=== PATIENT | female | born 1935 | race Caucasian/White ===

== ENCOUNTER 2019-02-06 13:59 | Emergency (ER) | payer MEDICARE ==
[2019-02-06 15:33] VITALS: RESP 18
[2019-02-06] MEDS ORDERED: CIPROFLOXACIN-DEXAMETH 0.3-0.1% DROPS 7.5 ML BTL BOTH EARS STA (17:16)
--- NOTE | 2019-02-06 18:00 | ED ---
General Adult HPI - General Chief complaint: ENT Stated complaint: poss ear infection, both ears, middle finger rt griffin Time Seen by Provider: 02/06/19 16:20 Source: patient, RN notes reviewed, old records reviewed Mode of arrival: ambulatory Limitations: no limitations - History of Present Illness Initial comments: 83-year-old female patient past medical history of diabetes presents to ED with chief complaint of bilateral external auditory canal pain and swelling. Patient reports it is worse on the left external auditory canal where she has discharge. Patient denies any other complaints at this time. Systemic: Pt denies fatigue, fever/chills, rash. Pt denies weakness, night sweats, weight loss. Neuro: Pt denies headache, visual disturbances, syncope or pre-syncope. HEENT: Pt denies ocular discharge or irritation, otalgia, rhinorrhea, pharyngitis or notable lymphadenopathy. Cardiopulmonary: Pt denies chest pain, SOB, heart palpitations, dyspnea on exertion. Abdominal/GI: Pt denies abdominal pain, n/v/d. : Pt denies dysuria, burning w/ urination, frequency/urgency. Denies new onset urinary or bowel incontinence. MSK: Pt denies myalgia, loss of strength or function in extremities. Neuro: Pt denies new onset weakness, paresthesias. - Related Data Previous Rx's Medication Instructions Recorded Amoxicillin/Potassium Clav 1 each PO Q12HR #20 tab 02/06/19 [Augmentin 875-125 Tablet] Ciprofloxacin-Dexameth [Ciprodex 4 drops BOTH EARS BID 7 Days #1 02/06/19 Otic Susp] bottle Allergies Allergy/AdvReac Type Severity Reaction Status Date / Time No Known Allergies Allergy Verified 02/06/19 15:29 Review of Systems ROS Statement: Those systems with pertinent positive or pertinent negative responses have been documented in the HPI. ROS Other: All systems not noted in ROS Statement are negative. Past Medical History Past Medical History: Diabetes Mellitus, Hypertension, Renal Disease Additional Past Medical History / Comment(s): DME History of Any Multi-Drug Resistant Organisms: None Reported Past Surgical History: Appendectomy Past Psychological History: No Psychological Hx Reported Smoking Status: Former smoker Past Alcohol Use History: None Reported Past Drug Use History: None Reported General Exam - General Exam Comments Initial Comments: Constitutional: NAD, AOX3, Pt has pleasant affect. HEENT: NC/AT, trachea midline, neck supple, no lymphadenopathy. Posterior pharynx non erythematous, without exudates. External ears appear normal, without discharge. Mucous membranes moist. Eyes PERRLA, EOM intact. There is no scleral icterus. No pallor noted. Left external auditory canal erythematous, edematous, purulent drainage noted, culture obtained, tympanic membrane not visualized. Right external auditory canal mildly erythematous, drainage noted. Right TM pale awan. Cardiopulmonary: RRR, no murmurs, rubs or gallops, no JVD noted. Lungs CTAB in anterior and posterior degroot. No peripheral edema. Abdominal exam: Abdomen soft and non-distended. Abdomen non-tender to palpation in all 4 quadrants. Bowel sounds active in LLQ. No hepatosplenomegaly. No ecchymosis. No mastoid tenderness or erythema. Neuro: CN II-XII grossly intact. No nuchal rigidity. No raccon eyes, no lerma sign, no hemotympanum. No cervical spinal tenderness. MSK: No posterior calf tenderness bilaterally, homans sign negative bilaterally. Posterior tibialis and radial pulse +2 bilaterally. Sensation intact in upper and lower extremities. Full active ROM in upper and lower extremities, 5/5 stregnth. Limitations: no limitations Course Vital Signs 02/06/19 02/06/19 15:29 18:05 Temperature 99 F 97.2 F L Pulse Rate 73 78 Respiratory 18 18 Rate Blood Pressure 208/96 204/100 O2 Sat by Pulse 98 98 Oximetry Medical Decision Making - Medical Decision Making 83-year-old female patient past medical history of diabetes presents to ED with chief complaint of bilateral external auditory canal pain and swelling. Patient reports it is worse on the left external auditory canal where she has discharge. Patient denies any other complaints at this time. Pt VS displayed hypertension. Patient does have history of hypertension, denies any headache, changes in vision, paresthesias. Patient offered from pharmacologic intervention blood pressure, patient declined states that she is asymptomatic will monitor symptoms at home and will check her blood pressure at home. Physical exam displayed: Left external auditory canal erythematous, edematous, purulent drainage noted, culture obtained, tympanic membrane not visualized. Right external auditory canal mildly erythematous, drainage noted. Right TM pale awan. Patient started on Ciprodex eardrops and wick was placed in left auditory canal. Patient also be prescribed oral Augmentin. Patient will be discharged, will have close outpatient follow-up with ENT. Return precautions discussed. Case discussed and pt seen by Dr. Jimenez. Disposition Clinical Impression: Otitis externa Disposition: HOME SELF-CARE Condition: Stable Instructions (If sedation given, give patient instructions): Otitis Externa (ED) Additional Instructions: Patient to adhere to previously discussed treatment plan and will take medication(s) as directed. Patient to follow up with PCP in 1-2 days. Patient to return to ED if symptoms do not improve. Take antibiotics as prescribed. Follow up with ENT tomorrow, return to ER if condition worsens. Prescriptions: Amoxicillin/Potassium Clav [Augmentin 875-125 Tablet] 1 each PO Q12HR #20 tab Ciprofloxacin-Dexameth [Ciprodex Otic Susp] 4 drops BOTH EARS BID 7 Days #1 bottle Is patient prescribed a controlled substance at d/c from ED?: No Referrals: None,Stated [Primary Care Provider] - 1-2 days Severiano Dye MD [STAFF PHYSICIAN] - 1-2 days
[2019-02-06 18:06] VITALS: BP 204/100; PULSE 78; TEMP 97.2
== END 2019-02-06 18:10 | disposition home or self-care (01) ==
LOC: EC 13:59
DX: H60.93 Unspecified otitis externa, bilateral (principal); Z87.891 Personal history of nicotine dependence; Z53.29 Procedure and treatment not carried out because of patient's decision for other reasons
CPT/HCPCS: 87070; 87205; 99283